=== PATIENT | male | born 1975 ===

== ENCOUNTER → 2023-01-03 | Outpatient (CLI) | payer OTHER ==
[2023-01-05 14:10] LABS: HSV-1 DNA Negative (Negative); HSV-2 DNA Negative (Negative)
[2023-01-05 23:11] LABS: HSV-1 DNA Negative (Negative); HSV-2 DNA Negative (Negative)
== END | disposition home or self-care (01) ==
LOC: LAB 15:14 → LAB SHORT 15:14
PROVIDERS: Physician Assistant Medical
DX: L08.9 Local infection of the skin and subcutaneous tissue, unspecified (principal); R21 Rash and other nonspecific skin eruption
CPT/HCPCS: 87070; 87205; 87529; 87798